=== PATIENT | female | born 1935 | race Caucasian/White ===

== ENCOUNTER 2018-09-16 15:07 | Inpatient (IN) | payer OTHER ==
[~2018-09-16] VITALS: Ht 157.5 cm; Wt 67.1 kg
[2018-09-27] MEDS ORDERED: LOTREL 5-20 MG1 CAP PO (12:59)
[2018-09-27] MEDS ORDERED: LEVO-T88 MCG PO (12:59)
[2018-09-27] MEDS ORDERED: ECOTRIN81 MG PO (12:59)
[2018-09-27] MEDS ORDERED: VITAMIN D5000 UNIT PO (13:00)
[2018-09-27] MEDS ORDERED: FENOFIBRATE160 MG PO (13:00)
[2018-09-27] MEDS ORDERED: MULTI VITAMIN1 EACH PO (13:00)
[2018-09-27] MEDS ORDERED: DONEPEZIL HCL10 MG PO (13:01)
[2018-10-02] MEDS ORDERED: INTESTINEX680 M1 PO (11:04)
[2018-10-02] MEDS ORDERED: TYLENOL ARTHRI650 MG PO (11:04)
== END 2018-10-02 13:27 | disposition home or self-care (01) | DRG 331 ==
LOC: O/R 09-28 06:47 → SURH 09-28 06:47
PROVIDERS: Surgery
PROC: 0DTP0ZZ Resection of Rectum, Open Approach (ICD-10-PCS; 2018-09-28)
PROC: 0DQR0ZZ Repair Anal Sphincter, Open Approach (ICD-10-PCS; 2018-09-28)
PROC: 0DTN0ZZ Resection of Sigmoid Colon, Open Approach (ICD-10-PCS; principal; 2018-09-28 07:00)
DX: K62.3 Rectal prolapse (principal); R15.9 Full incontinence of feces; I11.9 Hypertensive heart disease without heart failure; E03.8 Other specified hypothyroidism; D50.0 Iron deficiency anemia secondary to blood loss (chronic); I13.10 Hypertensive heart and chronic kidney disease without heart failure, with stage 1 through stage 4 chronic kidney disease, or unspecified chronic kidney disease; N18.3 Chronic kidney disease, stage 3 (moderate)